=== PATIENT | female | born 1960 | race Two or more races ===

== ENCOUNTER 2017-05-18 21:37 | Emergency (ER) | payer SELFPAY ==
[2017-05-18 23:04] VITALS: BP 156/96; PULSE 79; RESP 20; TEMP 98; O2SAT 98
== END 2017-05-18 22:59 | disposition left against medical advice (07) ==
LOC: C.ER 21:37
DX: Z02.89 Encounter for other administrative examinations (principal); M54.9 Dorsalgia, unspecified